=== PATIENT | female | born 1955 | race Caucasian/White ===

== ENCOUNTER 2022-06-15 13:55 | Emergency (ER) | payer MEDICARE, SELFPAY ==
--- NOTE | ~2022-06-15 | XR_ITS ---
EXAMINATION: XR ankle LT min 3V DATE: 06/15/2022 14:25 INDICATION: Left ankle swelling TECHNIQUE: Anteroposterior, lateral, mortise, and additional oblique view of the ankle were obtained. COMPARISON: None. FINDINGS: The bones are osteopenic which limits the sensitivity for fracture however none is seen. Remi ne alignment is normal. There is mild soft tissue swelling projecting posterior to the distal tibia a nd fibula. Posterior and plantar calcaneal enthesophytes are noted. IMPRESSION: 1. Mild posterior soft tissue swelling of the distal leg without acute osseous abnormality identified . Reviewed, dictated and finalized at location B. IMPRESSION: 1. Mild posterior soft tissue swelling of the distal leg without acute osseous abnormality identified.
--- NOTE | 2022-06-15 14:03 | ED.LOWEXIN ---
HPI - Extremity Injury (Lower) General Chief Complaint: Extremity Problem,Nontraumatic Stated Complaint: left ankle injury Time Seen by Provider: 06/15/22 14:03 Source: patient, RN notes reviewed and old records reviewed Mode of arrival: ambulatory Limitations: no limitations History of Present Illness HPI Narrative: 66-year-old female presents to the [facility] with complaints of left ankle pain and 2 scabbed over area for the last 3 months. Has a history of peripheral artery disease, poor circulation, smoking. States it swells once in a while. Has not called primary care provider for an evaluation. Family member that is at bedside thinks that she rolled her ankle 3 months ago and is afraid it might be broken because of the swelling and discoloration that has been like that for 3 months Related Data Home Medications Medication Instructions Recorded Confirmed aspirin 325 mg tablet 325 mg PO DAILY 03/21/22 06/15/22 multivitamin (Daily Multi-Vitamin 1 tablet PO DAILY 03/21/22 06/15/22 tablet) Allergies Allergy/AdvReac Type Severity Reaction Status Date / Time No Known Allergies Allergy Verified 06/15/22 14:10 Review of Systems Review of Systems: All systems reviewed & are unremarkable except as noted in HPI and below Constitutional: Constitutional: Reports no additional constitutional complaints, Denies chills and Denies fever(s) Eyes: Eyes: Reports no additional eye complaints ENT: Reports system reviewed and no additional complaints, except as documented Cardiovascular: Cardiovascular: Reports no additional cardiovascular complaints Respiratory: Respiratory: Reports no additional respiratory complaints Gastrointestinal: Gastrointestinal: Reports no additional gastrointestinal complaints Musculoskeletal: Musculoskeletal: Reports as per HPI Integumentary/Breasts: Skin/Breast: Reports as per HPI Neurologic: Reports system reviewed and no additional complaints, except as documented Psychiatric: Psychiatric: Reports no additional psychiatric complaints Allergic/Immunologic: Allergic/Immunologic: Reports no additional allergic/immunologic complaints PMFSH Past Medical History Medical History Essential (primary) hypertension Mixed hyperlipidemia Neurofibromatosis PVD (peripheral vascular disease) Seizure disorder Shingles (~02/26/20) Tobacco use Family History Family History Other Diabetes mellitus Family history of coronary artery disease Family history of elevated blood lipids Hypertension Malignant neoplasm of prostate Social History Social History Smoking packs per day: 0.5 Smoking cigarettes per day: 10.0 Smoking status: Current every day smoker Tobacco type: cigarettes Alcohol intake: never Comments At the time of my signature, I reviewed and agree with the nursing past medical, surgical, social, and family history. There is no relevant family history pertinent to the patient complaint. Exam Const: General: no acute distress, alert and ill appearing chronically; not acutely Nutritional Appearance: well nourished Orientation/consciousness: patient oriented x3 Limitations: no limitations HENMT: Head: normal to inspection Ears: external ears normal Eyes: General: appearance normal, both eyes and all related structures Pupils: Equal, round and reactive pupils present Neck: Neck: normal visual inspection, no lymphadenopathy and no meningeal signs Chest: Chest palpation & inspection: normal inspection of the chest Resp: Effort & Inspection: normal respiratory effort and no use of accessory muscles Auscultation: clear to auscultation bilaterally, no crackles, no rales, no rhonchi and no wheezes Cardio: Rate: regular rate Rhythm: regular rhythm GI: GI Palp: Yes Soft to palpation and No Tenderness to palpation present (GI) Back/Spine/Pelvis: Cervical S
[2022-06-15 14:04] VITALS: BP 160/52; PULSE 84; RESP 16; TEMP 37.4; O2SAT 100
== END 2022-06-15 15:18 | disposition home or self-care (01) ==
PROVIDERS: Emergency Provider Nurse Practitioner; PCP Nurse Practitioner Family
DX: M25.572 Pain in left ankle and joints of left foot (principal); M85.872 Other specified disorders of bone density and structure, left ankle and foot; I73.9 Peripheral vascular disease, unspecified; F17.210 Nicotine dependence, cigarettes, uncomplicated; I10 Essential (primary) hypertension; E78.2 Mixed hyperlipidemia; Z79.82 Long term (current) use of aspirin; Q85.00 Neurofibromatosis, unspecified
CPT/HCPCS: 73610; 99213; G0463

== ENCOUNTER 2022-11-30 12:44 | Outpatient (CLI) | payer MEDICARE, SELFPAY ==
[2022-11-30 19:08] LABS: Alanine Aminotransferase 17 U/L (6-35); Albumin Level 3.6 g/dL (3.5-5.1); Alkaline Phosphatase 108 U/L (38-126); Anion Gap 3 mmol/L (8-16); Aspartate Amino Transferase 34 U/L (14-36); Bilirubin,Total 0.5 mg/dL (0.2-1.3); Blood Urea Nitrogen 32 mg/dL (7-17); Calcium 8.3 mg/dL (8.4-10.2); Carbon Dioxide 30 mmol/L (22-30); Chloride 101 mmol/L (98-107); Estimated Glomerular Filt Rate > 60; Glucose 89 mg/dL (65-110); Potassium 4.5 mmol/L (3.4-5.0); Sodium 134 mmol/L (137-145)
[2022-11-30 20:04] LABS: Basophils Percent Auto 0.6 % (0.2-1.2); Eosinophils Absolute Auto 0.3 K/mm3 (0-0.3); Eosinophils Percent Auto 3.6 % (0-4.4); Hemoglobin 11.5 g/dL (12.0-15.0); Immature Granulocyte Absolute 0.03 K/mm3 (0.00-0.031); Immature Granulocyte Percent A 0.4 % (0-0.5); Lymphocytes Absolute Auto 1.52 K/mm3 (0.9-3.2); Lymphocytes Percent Auto 21.9 % (18.3-44.2); Mean Corpuscular HGB Conc 31.1 g/dl (32-36); Mean Corpuscular Volume 96.6 fl (80-100); Monocytes Absolute Auto 0.8 K/mm3 (0.1-0.6); Neutrophils Absolute Auto 4.3 K/mm3 (1.3-6.7); Neutrophils Percent Auto 62.5 % (45.5-73.1); Platelet Count Result 292 k/mm3 (150-375); Red Blood Count 3.83 M/mm3 (4.2-5.4); White Blood Count 6.9 K/mm3 (4.5-10.0)
== END 2022-11-30 12:45 | disposition home or self-care (01) ==
LOC: ANHGOSHLAB 12:46
PROVIDERS: PCP Family Medicine; Visit Provider Nurse Practitioner Family
DX: I77.1 Stricture of artery (principal); L98.499 Non-pressure chronic ulcer of skin of other sites with unspecified severity
CPT/HCPCS: 36415; 80053; 85025

== ENCOUNTER 2022-12-27 12:19 | Outpatient (RCR) | payer MEDICARE, SELFPAY ==
--- NOTE | 2022-12-27 13:14 | PTOPEVAL1 ---
Assessment and note entered by José Robert, PT Evaluation Information Diagnosis weakness Subjective Information Patient and sister are in a slight disagreement about how weak the patient it. Patient reports that she is able to walk with or without walker, go up and down a step and get out of bed, chairs, and on/off toilet without issue. When sister reports that she has trouble patient gets up and does the sit ot stand or steps with therapist to state she is doing okay. Reported Pain Level Pain Score Mild Pain: Edgar Roberts Additional Pain Score Comments in the L foot from the wound incision Assessment PT Clinical Summary Urszula is a 67 year old female coming into the clinic with a diagnosis of post-procedural weakness. Patient reports that she does not feel like she is weak and moves around well with out without the walker. Sister disagrees so physical therapist has patient do activities the sister thinks the patient has trouble with. In the clinic patient was independent with all functional mobility observed. Gave patient an HEP of lower extremity exercises to keep strength up and discharged per her request also informing her that she can come back after incision is healed if she want to improve her gait pattern. Walker was readjusted to better serve her height. Plan of Care PT Services Indicated No Treatment Frequency and Discharge from skilled physical therapy. Duration These treatments will address the objective and functional deficits as defined above. The patient will be advanced safely and appropriately in order for the patient to progress towards his/her prior level of function. Additional exercises will be introduced and as well as a comprehensive home exercise program upon discharge, if needed, ?to ensure carryover of functional gains achieved in the clinic. This treatment plan has been reviewed and agreement upon by the patient.
== END 2023-03-12 08:48 | disposition home or self-care (01) ==
LOC: ANHPT 12:19
PROVIDERS: PCP Family Medicine; Visit Provider Nurse Practitioner Family
DX: R53.1 Weakness (principal); Z98.890 Other specified postprocedural states
CPT/HCPCS: 97110; 97161

== ENCOUNTER 2023-09-05 15:42 | Outpatient (CLI) | payer MEDICARE, SELFPAY ==
[2023-09-05 19:17] LABS: Basophils Percent Auto 0.5 % (0.2-1.2); Eosinophils Absolute Auto 0.1 K/mm3 (0-0.3); Eosinophils Percent Auto 1.3 % (0-4.4); Hemoglobin 12.2 g/dL (12.0-15.0); Immature Granulocyte Absolute 0.01 K/mm3 (0.00-0.031); Immature Granulocyte Percent A 0.2 % (0-0.5); Lymphocytes Absolute Auto 1.66 K/mm3 (0.9-3.2); Mean Corpuscular HGB Conc 30.5 g/dl (32-36); Mean Corpuscular Hemoglobin 28.7 pg (26-34); Mean Corpuscular Volume 94.1 fl (80-100); Mean Platelet Volume 9.8 fl (7.4-10.4); Monocytes Absolute Auto 0.5 K/mm3 (0.1-0.6); Monocytes Percent Auto 7.7 % (2.6-8.5); Neutrophils Absolute Auto 4.1 K/mm3 (1.3-6.7); Neutrophils Percent Auto 64.3 % (45.5-73.1); Platelet Count Result 242 k/mm3 (150-375); Red Blood Count 4.25 M/mm3 (4.2-5.4); Red Cell Distribution Width 14.6 % (11.5-14.5); White Blood Count 6.4 K/mm3 (4.5-10.0)
[2023-09-05 20:11] LABS: Thyroid Stimulating Hormone Reflex 0.854 uIU/mL (0.465-4.68)
[2023-09-05 20:33] LABS: Cholesterol 179 mg/dL (0-200); HDL Direct 59 mg/dL; Triglycerides 135 mg/dL (<150)
[2023-09-05 20:37] LABS: Alanine Aminotransferase 17 U/L (6-35); Albumin Level 4.2 g/dL (3.5-5.1); Alkaline Phosphatase 93 U/L (38-126); Anion Gap 8 mmol/L (8-16); Aspartate Amino Transferase 31 U/L (14-36); Bilirubin,Total 0.5 mg/dL (0.2-1.3); Blood Urea Nitrogen 32 mg/dL (7-17); Calcium 9.3 mg/dL (8.4-10.2); Carbon Dioxide 29 mmol/L (22-30); Chloride 106 mmol/L (98-107); Estimated Glomerular Filt Rate > 60; Glucose 98 mg/dL (65-110); Potassium 5.1 mmol/L (3.4-5.0); Sodium 143 mmol/L (137-145)
[2023-09-05 20:44] LABS: LDL Cholesterol Direct 81 mg/dL
[2023-09-05 21:09] LABS: Thyroid Stimulating Hormone 0.887 uIU/mL (0.465-4.680)
[2023-09-05 21:53] LABS: Hemoglobin A1C 5.3 % (<5.7)
== END 2023-09-05 15:43 | disposition home or self-care (01) ==
LOC: ANHGOSHLAB 15:44
PROVIDERS: Nurse Practitioner Family; PCP Family Medicine; Visit Provider Nurse Practitioner Family
DX: E78.2 Mixed hyperlipidemia (principal); I10 Essential (primary) hypertension; R73.03 Prediabetes; E03.9 Hypothyroidism, unspecified
CPT/HCPCS: 36415; 80053; 80061; 83036; 84443; 85025

== ENCOUNTER 2023-09-21 15:46 | Outpatient (CLI) | payer MEDICARE, SELFPAY ==
[2023-09-21 19:43] LABS: Potassium 4.8 mmol/L (3.4-5.0)
== END 2023-09-21 15:47 | disposition home or self-care (01) ==
LOC: ANHGOSHLAB 15:48
PROVIDERS: PCP Family Medicine; Visit Provider Nurse Practitioner Family
DX: E87.5 Hyperkalemia (principal)
CPT/HCPCS: 36415; 84132

== ENCOUNTER 2024-05-05 07:20 | Emergency (ER) | payer MEDICARE, SELFPAY ==
--- NOTE | ~2024-05-05 | CT_ITS ---
Noncontrast CT scan of the cervical spine Technique: Multiple contiguous axial [address] images of the cervical spine were obtained and rec onstructed in 2D sagittal and coronal planes on the acquisition scanner. Dose reduction technique was used on this scan by utilizing automated exposure control, adjustment of the mA and/or kV according to patient size. The dose-length product (DLP) was 103.65 mGy-cm. Clinical History: Pain Findings: No fractures or dislocations. Unremarkable visualized bony structures. The intervertebral disc spaces are preserved. No prevertebral soft tissue swelling. Probable right apical pulmonary sc arring. Impression: No fracture or subluxation of the cervical spine. Reviewed, dictated and finalized at location . Impression: No fracture or subluxation of the cervical spine.
--- NOTE | ~2024-05-05 | CT_ITS ---
Non-contrast Head CT History: Head injury Technique: Axial non-contrast imaging of the brain was performed. Dose reduction technique was used on this scan by utilizing automated exposure control and iterative reconstruction technique. The dose -length product (DLP) was 681.00 mGy-cm. Findings: There is no evidence of intracranial hemorrhage, mass lesion, or acute infarct. Brain par enchyma appears normal. The ventricles and subarachnoid spaces are normal in size. The calvarium ap pears normal. The visualized paranasal sinuses and mastoid air cells are clear. Impression: No significant abnormality seen. Reviewed, dictated and finalized at location . Impression: No significant abnormality seen.
--- NOTE | ~2024-05-05 | XR_ITS ---
Clinical Indication: Seizure, weakness PA and lateral views of the chest: Comparison: 02/23/2004 Findings: There is probable biapical scarring and COPD pattern. No acute pulmonary abnormality eviden t. Cardiomediastinal silhouette is within normal limits. Bones and soft tissues are unremarkable. Impression: Probable COPD and biapical scarring. No acute abnormality evident. Reviewed, dictated and finalized at location . Impression: Probable COPD and biapical scarring. No acute abnormality evident.
--- NOTE | ~2024-05-05 | XR_ITS ---
XR shoulder LT min 2V Ordering provider: Demian Lerner MD History: . pain, fall, ABRASION TO POSTERIOR SHOULDER . Comparison: None. FINDINGS: BONES: No acute fracture or dislocation. Elevation of the humeral head is noted. Spurring of the acro mion is seen. Degenerative changes of the site of insertion of the supraspinatus is noted. JOINT SPACES: The acromioclavicular joint is normal. The glenohumeral joint is normal. SOFT TISSUES: Normal. IMPRESSION: No acute osseous abnormality left shoulder. Reviewed, dictated and finalized at location A.
[2024-05-05 07:21] VITALS: BP 180/78; PULSE 88; RESP 22; TEMP 36.6; O2SAT 98
--- NOTE | 2024-05-05 07:35 | ED.FALL ---
HPI - Fall General Chief Complaint: Fall Stated Complaint: fall? Time Seen by Provider: 05/05/24 07:26 History of Present Illness HPI Narrative: Patient is a 68-year-old female who presents ER after having seizure. Patient with known seizure disorder. Compliant with her Keppra. Last seizure was 3 years ago. Patient struck her head when falling and having her seizure. She has some abrasions to the left temporal region. She has bruising above her eyebrow on left side. She also has a small bruise to the upper eyelid. Patient under increased stress as a family member was starting dialysis today and she woke up early to help get him ready. Related Data Home Medications Medication Instructions Recorded Confirmed aspirin 325 mg tablet 325 mg PO DAILY 03/21/22 04/21/24 multivitamin (Daily Multi-Vitamin 1 tablet PO DAILY 03/21/22 04/21/24 tablet) Allergies Allergy/AdvReac Type Severity Reaction Status Date / Time No Known Allergies Allergy Verified 04/21/24 12:49 Review of Systems Review of Systems: All systems reviewed & are unremarkable except as noted in HPI and below Constitutional: Constitutional: Reports no additional constitutional complaints ENT: Reports system reviewed and no additional complaints, except as documented Cardiovascular: Cardiovascular: Reports no additional cardiovascular complaints Respiratory: Respiratory: Reports no additional respiratory complaints Neurologic: Denies headache(s), Denies focal weakness and Denies numbness Comments: seizure PMFSH Past Medical History Medical History Arterial insufficiency with ischemic ulcer Blood clot in vein Essential (primary) hypertension Former smoker Quit smoking 10/2022 Hyperkalemia Mixed hyperlipidemia Neurofibromatosis PVD (peripheral vascular disease) Seizure disorder Shingles (~02/26/20) Surgical History Surgical History Hx of endarterectomy (~10/2022) S/P femoral-tibial bypass (~10/2022) Family History Family History Other Diabetes mellitus Family history of coronary artery disease Family history of elevated blood lipids Hypertension Malignant neoplasm of prostate Social History Social History Social History: Caffeine-pepsi Smoking packs per day: 0.75 Smoking cigarettes per day: 15.0 Smoking status: Current every day smoker Tobacco type: cigarettes Alcohol intake: never Substance use: never Substance use type: does not use Do You Feel Safe in your Home?: Yes Lack of Transportation: No Lack of Food: Never True Current Housing: I Have Housing Concerned About Future Housing: No Difficulty Paying Gas/Electric Bills: No Difficulty Paying for Meds: No Currently Unemployed: No Education: High School Diploma/GED Difficulty w/ Childcare or Family Care: No Living arrangements: with family Occupation/Education: retired Gender identity (if verbalized by the patient): Female Agree to blood products: Yes Exam Narrative: GENERAL: Well-appearing, well-nourished, and in no acute distress. HEAD: Normocephalic, bruising left forehead and left lateral eyebrow. EYES: PERRL and EOMI. Bruising right upper eyelid ENT: Mucous membranes moist. no tongue injury. NECK: Supple. C-spine immobilized. CHEST: Clear to auscultation. No respiratory distress. HEART: Regular rate and rhythm. Normal peripheral pulses. ABDOMEN: Soft, nontender, nondistended. EXTREMITIES: Normal range of motion. No edema. SKIN: Warm, dry, no rash. NEURO: No focal deficits. Alert and oriented x3. PSYCH: Normal mood and affect. Course Course Emergency Course: Patient resting comfortably. Seizure-free since Keppra administration after 1 time seizure in the ER. Appropriate for discharge ho
[2024-05-05 08:20] LABS: Alanine Aminotransferase 16 U/L (6-35); Albumin Level 4.4 g/dL (3.5-5.1); Alkaline Phosphatase 79 U/L (38-126); Anion Gap 10 mmol/L (4-12); Aspartate Amino Transferase 24 U/L (14-36); Bilirubin,Total 0.7 mg/dL (0.2-1.3); Blood Urea Nitrogen 23 mg/dL (7-17); Calcium 9.2 mg/dL (8.4-10.2); Carbon Dioxide 28 mmol/L (22-30); Chloride 101 mmol/L (98-107); Estimated CRCL calculation 49 ml/min; Estimated Glomerular Filt Rate > 60; Glucose 113 mg/dL (65-110); Potassium 4.5 mmol/L (3.4-5.0); Sodium 139 mmol/L (137-145)
[2024-05-05 08:24] LABS: Ethanol < 10 mg/dL (<10)
[2024-05-05 08:44] LABS: Basophils Percent Auto 0.4 % (0.2-1.2); Eosinophils Absolute Auto 0.1 K/mm3 (0-0.3); Eosinophils Percent Auto 1.1 % (0-4.4); Hematocrit 46.3 % (37.0-47.0); Hemoglobin 14.2 g/dL (12.0-15.0); Immature Granulocyte Absolute 0.02 K/mm3 (0.00-0.031); Immature Granulocyte Percent A 0.2 % (0-0.5); Lymphocytes Absolute Auto 1.06 K/mm3 (0.9-3.2); Lymphocytes Percent Auto 13.1 % (18.3-44.2); Mean Corpuscular HGB Conc 30.7 g/dl (32-36); Mean Corpuscular Hemoglobin 30.2 pg (26-34); Mean Corpuscular Volume 98.5 fl (80-100); Mean Platelet Volume 9.6 fl (7.4-10.4); Monocytes Absolute Auto 0.5 K/mm3 (0.1-0.6); Monocytes Percent Auto 6.4 % (2.6-8.5); Neutrophils Absolute Auto 6.4 K/mm3 (1.3-6.7); Neutrophils Percent Auto 78.8 % (45.5-73.1); Platelet Count Result 160 k/mm3 (150-375); Red Cell Distribution Width 14.6 % (11.5-14.5); White Blood Count 8.1 K/mm3 (4.5-10.0)
[2024-05-05] MEDS: levETIRAcetam 1000MG/NACL100ML 1,000 MG/100 ML BAG 400 MG IVPB (09:06)
[2024-05-05 09:23] VITALS: BP 167/73; PULSE 86; RESP 16; O2SAT 98
--- NOTE | 2024-05-05 09:23 | PC.NURSE ---
Pt had witnessed seizure by this RN and EDP. Seizure precautions initiated.
[2024-05-05 10:46] LABS: Appearance Urine Clear (Clear); Bacteria Urine 4+ /hpf; Bilirubin Urine Negative (Negative); Blood Urine Negative (Negative); Color Urine Yellow (Yellow); Glucose Urine UA Negative (Negative); Ketones Urine Negative (Negative); Leukocyte Esterase Ur 1+ LEU/UL (Negative); Nitrate Urine Positive (Negative); Non Pathogenic Casts 0-2; Protein Urine Trace mg/dL (Negative); Specific Grav Ur 1.013 (1.001-1.035); Squamous Epithelial Cell Urine None Seen /hpf (Few); WBC Urine 21-50 /hpf (0-3)
[2024-05-05 10:49] LABS: Add Urine Microscopic? YES
[2024-05-05] MEDS: CEPHALEXIN 500 MG CAPSULE PO (11:23)
[2024-05-05 11:46] VITALS: BP 179/78; PULSE 78; RESP 16; O2SAT 100
[2024-05-05 13:32] VITALS: BP 168/71; PULSE 81; RESP 16; O2SAT 99
[2024-05-05 15:59] VITALS: BP 155/54; PULSE 88; RESP 16; O2SAT 97
== END 2024-05-05 16:05 | disposition home or self-care (01) ==
PROVIDERS: Emergency Provider Emergency Medicine; PCP Family Medicine
DX: G40.909 Epilepsy, unspecified, not intractable, without status epilepticus (principal); S00.83XA Contusion of other part of head, initial encounter; S00.11XA Contusion of right eyelid and periocular area, initial encounter; S00.12XA Contusion of left eyelid and periocular area, initial encounter; S00.81XA Abrasion of other part of head, initial encounter; N39.0 Urinary tract infection, site not specified; I10 Essential (primary) hypertension; I77.1 Stricture of artery; I73.9 Peripheral vascular disease, unspecified; E78.2 Mixed hyperlipidemia; Z87.891 Personal history of nicotine dependence; Z79.82 Long term (current) use of aspirin; Z79.899 Other long term (current) drug therapy; W18.39XA Other fall on same level, initial encounter
CPT/HCPCS: 36415; 70450; 71046; 72125; 73030; 80053; 80307; 81001; 85025; 87077; 87086; 87186; 96374; 99284; A9270; J1953; J2060

== ENCOUNTER 2025-05-18 14:43 | Outpatient (CLI) | payer MEDICARE, SELFPAY ==
--- OUTSIDE RECORDS SUMMARY | 2025-05-18 14:46 | XMS_ITS | Encounter Summary ---
Author Organization [facility] Address [facility] [place] [address] Care Team Providers [facility] Former Name Role Phone Renetta Cheryl SOCIAL WORKER DELINQUENCY PREVENTION Primary Care Provider [phone] Reason for Referral * Surgical (Routine) - Closed Specialty Diagnoses / Procedures Referred By Contac t Referred To Contact Diagnoses PVD (peripheral vascular disease) Procedures Case request operating room: [facility] Ulisses Stanley MD [facility]. [id number] [place] [address] Phone: tel: fax: Referral ID Status Reason Start Date Expiration Date Visits Re quested Visits Authorized [id number] Closed 09/13/2022 09/13/2023 1 1 CASTER HELPER Encounter Details Date Type Department Care Team (Late st Contact Info) Description 09/13/2022 Prep for Procedure [facility] [address] [place] [address] Ulisses Stanley MD [facility]. [facility] [address] [place] [address] Social History Tobacco Use Types Packs/Day Years Used Date Smoking Tobacco: Every Day Cigarettes Alcohol Use Standard Drinks/Week Comments Never 0 (1 standard drink = 0.6 oz pur e alcohol) Comments Unknown Sex and Gender Information Value Date Recorded Sex Assigned at Not on file Legal Sex Female 2:00 PM CDT Gender Identity Not on file Sexual Orientation Not on file COVID-19 Exposure Response Date Recorded In the last 10 days, have yo u been in contact with someone who was confirmed or suspected to have Coronavirus/COVID-19? 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 documented as of this encounter Plan of Treatment Scheduled Orders Name Type Priority Associated Diagnoses Orde r Schedule Case request operating room: [facility] Case Request Routine PVD (peripheral vascular disease) Once for 1 Occurrences starting 09/13/2022 until 09/13/2022 documented as of this encounter Visit Diagnoses Diagnosis Essential hypertension- Primary Unspecified essential hypertension PVD (peripheral vascular disease) Peripheral vascular disease, unspecified documented in this encounter Additional Health Concerns Infection Onset Date Last Indicated Resolved Time MRSA 01/09/2023 01/09/2023 documented as of this encounter Care Teams Cone Former Relationship Specialty Start Date End Date Janny Jackson FNP [address] [place] [address] [place] [address] PCP - General Nurse Practitioner Family 06/30/22 documented as of this encounter
--- OUTSIDE RECORDS SUMMARY | 2025-05-18 14:46 | XMS_ITS | Clinical Summary ---
Author Organization [facility] Address [address] [place] [address] Care Team Providers Care Night Shift Name Role Phone Janny Jackson Primary Care Provider [phone] Allergies No known active allergies Medications levETIRAcetam (KEPPRA) 1000 MG tablet Take 1 tablet (1,000 mg total) by mouth every 12 (twelve) hours. 2 Active aspirin 325 MG tablet Take 1 tablet (325 mg total) by mouth daily. Active Multiple Vitamin (MULTI VITAMIN DAILY OR) Take 1 tablet by mouth daily. Active SANTYL ointment Apply topically daily. Apply to cleansed affected area. 2 Active carvedilol (COREG) 6.25 MG tablet Take 1 tablet (6.25 mg total) by mouth 2 (two) times daily. 2 Active atorvastatin (LIPITOR) 80 MG tablet Take 0.5 tablets (40 mg total) by mouth daily. 90 tablet 3 Active Additional Information Patient taking differently: 80 mgOral Daily, Reported on 01/09/2023 acetaminophen (TYLENOL) 325 MG tablet Take 1 tablet (325 mg total) by mouth every 4 (four) hours as needed for Pain. 90 tablet 3 Active lisinopril (PRINIVIL) 2.5 MG tablet Take 1 tablet (2.5 mg total) by mouth daily. 30 tablet 3 Active melatonin 3 MG tablet Take 1 tablet (3 mg total) by mouth nightly as needed. Active ibuprofen (MOTRIN) 400 MG tablet Take 1 tablet (400 mg total) by mouth every 6 (six) hours as needed for Pain. Active Active Problems Problem Noted Date Diagnosed Date Essential (primary) hypertension 11/10/2022 Mixed hyperlipidemia 11/10/2022 Neurofibromatosis ([facility]) 11/10/2022 PAD (peripheral artery disease) 11/10/2022 Seizure disorder ([facility]) 11/10/2022 Stroke ([facility]) 11/10/2022 Tobacco use 11/10/2022 Ovarian cancer ([facility]) 11/10/2022 Left foot infection 10/24/2022 Wound cellulitis 09/19/2022 Chronic ulcer of left leg, l imited to breakdown of skin ([facility]) 08/16/2022 Cigarette smoker 07/04/2022 Peripheral vascular disease 07/04/2022 Ulcer of left ankle ([facility]) 07/04/2022 Chronic ankle pain 07/04/2022 Acute pain due to trauma 10/17/2018 Takotsubo cardiomyopathy 10/17/2018 Elevated troponin I level 10/16/2018 SAH (subarachnoid hemorrhage) ([facility]) 10/16/2018 Family History Medical History Relation Comments No Known Problems Mother Relation Status Comments Mother Social History Tobacco Use Types Packs/Day Years Used Date Smoking Tobacco: Some Days Cigarettes Last attempted to quit: 09/05/2022 Tobacco Cessation:Ready to Q uit: Not Asked; Counseling Given: Not Answered Alcohol Use Standard Drinks/Week Comments Never 0 (1 standard drink = 0.6 oz pur e alcohol) Humiliation, Afraid, Rape, and Kick questionnair e Answer Date Recorded Within the last year, have y ou been afraid of your partner or ex-partner? No 10/25/2022 Within the last year, have y ou been humiliated or emotionally abused in other ways by your partner or ex-partner? No Within the last year, have y ou been kicked, hit, slapped, or otherwise physically hurt by your partner or ex-partner? No 10/25/2022 Within the last year, have y ou been raped or forced to have any kind of sexual activity by your partner or ex-partner? No 10/25/2022 Overall Financial Resource Strain (CARDIA) Answe r Date Recorded How hard is it for you to pa y for the very basics like food, housing, medical care, and heating? Not very hard 10/25/2022 Hunger Vital Sign Answer Date Recorded Within the past 12 months, y ou worried that your food would run out before you got the money to buy more. Never true 10/25/19 23 Within the past 12 months, t he food you bought just didn't last and you didn't have money to get more. Never true 10/25/2022 PRAPARE - Transportation Answer Date Re corded In the past 12 months, has l ack of transportation kept you from medical appointments or from getting medications? No 01/2023 In the past 12 months, has l ack of transportation kept you from meetings, work, or from getting things needed for daily living? No 10/25/2022 Housing Stability Vital Sign Answer Kang e Recorded In the last 12 months, was t here a time when you were not able to pay the mortgage or rent on time? No 10/25/2022 In the last 12 months, how many places have you lived? 2 10/25/2022 In the last 12 months, was t here a time when you did not have a steady place to sleep or slept in a fpc (including now)? No 10/25/2022 Comments No Sex and Gender Information Value Date Recorded Sex Assigned at Not on file Legal Sex Female 2:00 PM CDT Gender Identity Not on file Sexual Orientation Not on file Last Filed Vital Signs Vital Sign Reading Time Taken Comments Blood Pressure 122/68 02/21/2023 11:23 AM CDT Pulse 98 02/21/2023 11:23 AM CDT Temperature 36.7 C (98 F) 01/09/2023 7:08 PM CDT Respiratory Rate 18 01/09/2023 7:08 PM CDT Oxygen Saturation 99% 01/09/2023 9:00 PM CDT Inhaled Oxygen Concentration - - Weight 45.4 kg (100 lb) 02/21/2023 11:23 AM CDT Height 160 cm (5' 3) 02/21/2023 11:23 AM CDT Body Mass Index 17.71 02/21/2023 11:23 AM CDT Plan of Treatment Health Maintenance Due Date Last Done Comments ASCVD LDL 1955 ASCVD Statin 1955 Colorectal Cancer Screening Colonoscopy (10 Years) 1953 DTaP, Tdap and Td Vaccines ( 1 - Tdap) 1972 Pneumococcal Vaccine: 50+ Ye ars (1 of 2 - PCV) 1972 Mammogram Screening 1993 Zoster Vaccines (1 of 2) 2003 Annual Medicare Wellness Visit 2018 Dexa Scan (General) 2018 COVID-19 Vaccine (2023-2 5 season) 2024 RSV Immunization or 60+ Years (1 - 1-dose 75+ series) 2028 Hepatitis C Completed 11/01/2022 Meningococcal B Vaccine Aged Out No l onger eligible based on patient's age to complete this topic Meningococcal Vaccine Aged Out No na ankit eligible based on patient's age to complete this topic RSV Immunizations Under 20 Months Aged Out No longer eligible based on patient's age to complete this topic Goals Goal Patient Goal Type Associated Problems Recent Progress Patient-Stated? Author Family - family caregiver with be involved in care transitions and discharge planning Lifestyle No Payton Hunter, PARKS AND RECREATION MANAGERsteel pickler Devices Implanted Type Area Retail Client Manager Device Identifier Shelf Expiration Date Model / Serial / Lot Patch Shyann. Vasc. Vascu-Guard 0.8cm X 8cm - [id number] Implanted:Qty: 1 on 10/27/2022 by Ulisses Stanley MD at [facility] Mesh Left: Arterial [employer] 05/31/2027 [id number] / / [id number] Procedures Procedure Name Priority Date/Time Associated Diagnosis Comments HC EIA QL HEPATITIS ABC B AG Routine 11/01/2022 6:50 AM ANIMAL ATTENDANTS AND TRAINERS from Last 3 Months or Most Recently Relevant to Health Maintenance Results * HEPATITIS A,B,& C (11/01/2022 6:50 AM ANIMAL ATTENDANTS AND TRAINERS) HEPATITIS B SURFACE AG NON-REACTI VE NON-REACTI VE 11/01/2022 11:09 AM ANIMAL ATTENDANTS AND TRAINERS [facility] HEP B CORE TOTAL AB NON-REACTI VE NON-REACTI VE 11/01/2022 11:10 AM ANIMAL ATTENDANTS AND TRAINERS [facility] HEP B SURFACE AB NON-REACTI VE 11/01/2022 11:10 AM ANIMAL ATTENDANTS AND TRAINERS [facility] HAV IGM NON-REACTI VE NON-REACTI VE 11/01/2022 11:10 AM ANIMAL ATTENDANTS AND TRAINERS [facility] HEPATITIS C AB NON-REACTI VE NON-REACTI VE 11/01/2022 11:10 AM ANIMAL ATTENDANTS AND TRAINERS [facility] 11/01/2022 6:50 AM ANIMAL ATTENDANTS AND TRAINERS Rom Lopez MD LABORATORY Final Result [facility] [address] [place] [address], from Last 3 Months or Most Recently Relevant to Health Maintenance Additional Health Concerns Infection Onset Date Last Indicated MRSA 01/09/2023 01/09/[address]23 [place] [id number] [facility] [employer] [place] [address] Advance Directives * Full Code (Latest Code Status on File) Date Activated Date Inactivated Comments 10/24/2022 11:32 PM 11/10/2022 4:30 PM * Full Code Date Activated Date Inactivated Comments 09/19/2022 2:38 AM 09/19/2022 7:30 PM Care Teams Night Shift Relationship Specialty Start Date End Date Janny Jackson FNP [address] [place] [address] [address] PCP - General Nurse Practitioner Family 06/30/22
--- OUTSIDE RECORDS SUMMARY | 2025-05-18 14:46 | XMS_ITS | Encounter Summary ---
Author Organization [facility] Address [facility] [place] [address] Care Team Providers Care Dredge Hand Name Role Phone Janny Jackson PRINTING TABLE HAND Primary Care Provider [phone] Encounter Details Date Type Department Care Team (Late st Contact Info) Description 10/25/2022 Prep for Procedure [place] [facility], [facility] [address] [id number] Ulisses Stanley MD Three [facility]. [facility] [address] [place] [address] Social History Tobacco Use Types Packs/Day Years Used Date Smoking Tobacco: Some Days Cigarettes Last attempted to quit: 09/05/2022 Alcohol Use Standard Drinks/Week Comments Never 0 [...] place to sleep or slept in a long term (including now)? No 10/25/2022 Comments No Sex [...] suspected to have Coronavirus/COVID-19? No / Unsure 10/24/2022 6:38 PM MEAT AND SEAFOOD CLERK documented as of this encounter Functional Status * Question Answer Date of Assessment Author Status Do you have serious difficulty walking or climbing stairs? Yes 10/25/2022 1:55 PM MEAT AND SEAFOOD CLERK Hazel Lugo RN Active * Question Answer Date of Assessment Author Status Do you have difficulty dressing or bathing? Yes 10/25/2022 1:55 PM Josephine Priest RN Active Because of a physical, mental, or emotional condition, do you have difficulty doing errands alone such as visiting a doctor's office or shopping? Yes 10/25/2022 1:55 PM Hazel Priest RN Active * RETIRED Are you deaf or do you have serious difficulty hearing Answer Date of Assessment Author Status No 10/25/2022 1:55 PM MEAT AND SEAFOOD CLERK Activ e * RETIRED Are you blind or do you have serious difficulty seeing, even when wearing glasses? Answer Date of Assessment Author Status No 10/25/2022 1:55 PM MEAT AND SEAFOOD CLERK Activ e * Do you have serious difficulty walking or climbing stairs? Answer Date of Assessment Author Status Yes 10/25/2022 1:55 PM Domitila Priest RN Active * Do you have difficulty dressing or bathing? Answer Date of Assessment Author Status Yes 10/25/2022 1:55 PM Domitila Priest RN Active * Because of a physical, mental, or emotional condition, do you have difficulty doing errands alone such as visiting a doctor's office or shopping? Answer Date of Assessment Author Status Yes 10/25/2022 1:55 PM Domitila Priset RN Active * Calculated C-SSRS Risk Score (Lifetime/Recent) Answer Date of Assessment Author Status No Risk Indicated 10/27/2022 10:42 AM Yevgeniy Chakraborty RN Active * [place] Suicide Severity Rating Scale (Screener/Recent Self-Report) Question Answer Date of Assessment Author Status 1. Wish to be (Past 1 Month) No 10/27/2022 10:42 AM Cm Chakraborty, RN Morales tive 2. Non-Specific Active Suicidal Thoughts (Past 1 Month) No 10/27/2022 10:42 AM Cm Chakraborty, RN Ac tive 6. Suicidal Behavior (Lifetime) No 10/27/2022 10:42 AM Cm Chakraborty RN Morales jain documented as of this encounter Mental Status * Question Answer Entry Date Author Status Because of a physical, mental, or emotional condition, do you have serious difficulty concentrating, remembering, or making decisions? Yes 10/25/2022 1:55 PM Domitila Priest RN Active * Because of a physical, mental, or emotional condition, do you have serious difficulty concentrating, remembering, or making decisions? Answer Entry Date Author Status Yes 10/25/2022 1:55 PM MEAT AND SEAFOOD CLERK Domitila Lugo, RN Active documented in this encounter Plan of Treatment Not on file documented as of this encounter Goals Goal Patient Goal Type Associated Problems Recent Progress Patient-Stated? Author Family - family caregiver with be involved in care transitions and discharge planning Lifestyle No Payton Hunter, SENIOR INTERNAL AUDITOR documented as of this encounter Visit Diagnoses Not on filedocumented in this encounter Additional Health Concerns Infection Onset Date Last Indicated Resolved Time MRSA 01/09/2023 01/09/2023 documented as of this encounter Care Teams Dredge Hand Relationship Specialty Start Date End Date Janny Jackson FNP [facility] [facility] [address] [address] [place] [id number] PCP - General Nurse Practitioner Family 06/30/22 documented as of this encounter
--- OUTSIDE RECORDS SUMMARY | 2025-05-18 14:46 | XMS_ITS | Encounter Summary ---
Author Organization [facility] Address [facility] [place] [address] Care Team Providers Care Boat Pilot Name Role Phone Janny Jackson Primary Care Provider [phone] Encounter Details Date Type Department Care Team (Late st Contact Info) Description 08/21/2022 Prep for Procedure [place] [facility] THREE [facility], [facility] [address] [place], [place] [address] Ulisses Stanley MD Three [facility]. [facility] [address] [place] [address] Social History Tobacco Use Types [...] suspected to have Coronavirus/COVID-19? No / Unsure 08/17/2022 1:52 PM CDT documented as of this encounter Plan of Treatment Not on file documented as of this encounter Visit Diagnoses Not on filedocumented in this encounter Additional Health Concerns Infection Onset Date Last Indicated Resolved Time MRSA 01/09/2023 01/09/2023 documented as of this encounter Care Teams Boat Pilot Relationship Specialty Start Date End Date Janyn Jackson FNP [address] [place], [place] [id number] PCP - General Nurse Practitioner Family 06/30/22 documented as of this encounter
[2025-05-18 18:44] LABS: Hematocrit 42.4 % (37.0-47.0); Hemoglobin 13.4 g/dL (12.0-15.0); Immature Granulocyte Percent A 0.3 % (0-0.5); Lymphocytes Absolute Auto 1.47 K/mm3 (0.9-3.2); Mean Corpuscular HGB Conc 31.6 g/dl (32-36); Mean Corpuscular Hemoglobin 31.4 pg (26-34); Mean Corpuscular Volume 99.3 fl (80-100); Nucleated Red Blood Cells Absolute Auto 0.000 K/mm3 (0.0-0.012); Nucleated Red Blood Cells Perc 0.0 % (0.0-0.2); Platelet Count Result 250 k/mm3 (150-375); Red Blood Count 4.27 M/mm3 (4.2-5.4); White Blood Count 8.0 K/mm3 (4.5-10.0)
[2025-05-18 19:27] LABS: Thyroid Stimulating Hormone Reflex 0.759 uIU/mL (0.465-4.68)
[2025-05-18 19:28] LABS: Alanine Aminotransferase 18 U/L (6-35); Albumin Level 4.1 g/dL (3.5-5.1); Alkaline Phosphatase 91 U/L (38-126); Anion Gap 4 mmol/L (4-12); Aspartate Amino Transferase 65 U/L (14-36); Bilirubin,Total 0.4 mg/dL (0.2-1.3); Blood Urea Nitrogen 33 mg/dL (7-17); Calcium 9.3 mg/dL (8.4-10.2); Carbon Dioxide 31 mmol/L (22-30); Chloride 102 mmol/L (98-107); Cholesterol 161 mg/dL (0-200); Estimated Glomerular Filt Rate 59; Glucose 112 mg/dL (65-110); HDL Direct 58 mg/dL; Potassium 4.8 mmol/L (3.4-5.0); Sodium 137 mmol/L (137-145); Total Protein 7.3 g/dL (6.3-8.2); Triglycerides 120 mg/dL (<150)
[2025-05-18 19:46] LABS: Hemoglobin A1C 5.4 % (<5.7)
[2025-05-18 19:46] LABS: Add Urine Microscopic? YES; Appearance Urine Cloudy (Clear); Glucose Urine UA Negative (Negative); Leukocyte Esterase Ur 3+ LEU/UL (Negative); Nitrate Urine Negative (Negative); Non Pathogenic Casts 0-2; Specific Grav Ur 1.018 (1.001-1.035)
== END 2025-05-18 14:44 | disposition home or self-care (01) ==
LOC: ANHGOSHLAB 14:44
PROVIDERS: PCP Family Medicine; Visit Provider Nurse Practitioner Family
DX: R39.9 Unspecified symptoms and signs involving the genitourinary system (principal); I10 Essential (primary) hypertension; Z00.00 Encounter for general adult medical examination without abnormal findings; E55.9 Vitamin D deficiency, unspecified; R73.9 Hyperglycemia, unspecified; Z86.73 Personal history of transient ischemic attack (TIA), and cerebral infarction without residual deficits; E78.5 Hyperlipidemia, unspecified
CPT/HCPCS: 36415; 80053; 80061; 81001; 82306; 83036; 84443; 85025

== ENCOUNTER 2025-06-24 09:01 | Outpatient (CLI) | payer MEDICARE, SELFPAY ==
[2025-06-24 13:38] LABS: Alanine Aminotransferase 19 U/L (6-35); Albumin Level 3.9 g/dL (3.5-5.1); Alkaline Phosphatase 96 U/L (38-126); Anion Gap 6 mmol/L (4-12); Aspartate Amino Transferase 68 U/L (14-36); Bilirubin,Total 0.5 mg/dL (0.2-1.3); Blood Urea Nitrogen 28 mg/dL (7-17); Calcium 9.0 mg/dL (8.4-10.2); Carbon Dioxide 26 mmol/L (22-30); Chloride 106 mmol/L (98-107); Estimated Glomerular Filt Rate > 60; Glucose 108 mg/dL (65-110); Potassium 4.4 mmol/L (3.4-5.0); Sodium 138 mmol/L (137-145); Total Protein 7.0 g/dL (6.3-8.2)
== END 2025-06-24 09:02 | disposition home or self-care (01) ==
LOC: ANHGOSHLAB 09:02
PROVIDERS: Nurse Practitioner Family; PCP Family Medicine; Visit Provider Nurse Practitioner Family
DX: R74.01 Elevation of levels of liver transaminase levels (principal)
CPT/HCPCS: 36415; 80053

== ENCOUNTER 2025-08-27 09:22 | Outpatient (CLI) | payer MEDICARE, SELFPAY ==
[2025-08-27 13:01] LABS: Alanine Aminotransferase 13 U/L (6-35); Albumin Level 3.7 g/dL (3.5-5.1); Alkaline Phosphatase 86 U/L (38-126); Anion Gap 3 mmol/L (4-12); Aspartate Amino Transferase 54 U/L (14-36); Bilirubin,Total 0.5 mg/dL (0.2-1.3); Blood Urea Nitrogen 28 mg/dL (7-17); Calcium 8.7 mg/dL (8.4-10.2); Carbon Dioxide 31 mmol/L (22-30); Chloride 104 mmol/L (98-107); Estimated Glomerular Filt Rate > 60; Glucose 89 mg/dL (65-110); Potassium 4.8 mmol/L (3.4-5.0); Sodium 138 mmol/L (137-145); Total Protein 6.6 g/dL (6.3-8.2)
--- OUTSIDE RECORDS SUMMARY | 2025-08-27 17:57 | XMS_ITS | Clinical Summary ---
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 PAD (peripheral artery disease) 11/10/2022 Seizure disorder 11/10/2022 Stroke 11/10/2022 Tobacco use 11/10/2022 Ovarian cancer 11/10/2022 Left foot infection 10/24/2022 Wound cellulitis 09/19/2022 Chronic ulcer of left leg, limited to breakdown of skin 08/16/2022 Cigarette smoker 07/04/2022 Peripheral vascular disease 07/04/2022 Ulcer of left ankle 07/04/2022 Chronic ankle pain 07/04/2022 Acute pain due to trauma 10/17/2018 Takotsubo cardiomyopathy 10/17/2018 Elevated troponin I level 10/16/2018 SAH (subarachnoid hemorrhage) 10/16/2018 Family History Medical History Relation Comments [...] money to buy more. Never true 10/25/19 Within the past 12 months, t he [...] place to sleep or slept in a retirement (including now)? No 10/25/2022 Comments No Sex [...] Colorectal Cancer Screening Colonoscopy (10 Years) 1953 Hepatitis C 1971 DTaP, Tdap and Td Vaccines ( 1 - Tdap) 1972 Pneumococcal Vaccine: 50+ Ye ars (1 of 2 - PCV) 1972 Mammogram Screening 1993 Zoster Vaccines (1 of 2) 2003 Annual Medicare Wellness Visit 2018 Dexa Scan (General) 2018 COVID-19 Vaccine (1 - 2024-2 6 season) 2025 Influenza Adult (#1) 2025 RSV Immunization or 60+ Years (1 - 1-dose 75+ series) 2028 Hepatitis A Vaccines Aged Out No long er eligible based on patient's age to complete this topic Meningococcal B Vaccine Aged Out No l [...] and discharge planning Lifestyle No Payton Hunter, REHEAT FURNACE OPERATORretread operator Devices Implanted Type Area Boring Machine Operator Helper Device Identifier Shelf Expiration Date Model / Serial / Lot Patch Shyann. Vasc. Vascu-Guard 0.8cm X 8cm - [id number] Implanted:Qty: 1 on 10/27/2022 by Ulisses Stanley MD at [facility] Mesh Left: Arterial [employer] 05/31/2027 [id number] / / [id number] Additional Health Concerns Infection Onset Date Last Indicated MRSA 01/09/2023 01/09/2023 Insurance MEDICARE [employer] Advance Directives * Full Code (Latest Code Status on File) Date Activated Date Inactivated Comments 10/24/2022 11:32 PM 11/10/2022 4:30 PM * Full Code Date Activated Date Inactivated Comments 09/19/2022 2:38 AM 09/19/2022 7:30 PM Care Teams Basket Maker Relationship Specialty Start Date End Date Janny Jackson FNP [facility] [facility] [address] [place] [id number] PCP - General Nurse Practitioner Family 06/30/22
--- OUTSIDE RECORDS SUMMARY | 2025-08-27 17:57 | XMS_ITS | Encounter Summary ---
Author Organization [facility] Address [facility] [place] [address] Care Team Providers Care Underwater Roboticist Name Role Phone Janny Jackson Primary Care Provider [phone] Encounter Details Date Type Department Care Team (Late st Contact Info) Description 08/21/2022 Prep for Procedure [place] [facility] [address] [place], [place] [address] Ulisses Stanley MD Three [facility]. [facility] [address] [place] [address] Social History Tobacco Use Types [...] documented as of this encounter Care Teams Underwater Roboticist Relationship Specialty Start Date End Date Janny Jackson FNP [address] [facility] [address] [place], [place] [id number] PCP - General Nurse Practitioner Family 06/30/22 documented as of this encounter
--- OUTSIDE RECORDS SUMMARY | 2025-08-27 17:57 | XMS_ITS | Encounter Summary ---
Author Organization [facility] Address [facility] [place] [address] Care Team Providers Care Medical Auditor Name Role Phone Janny Jackson HUMANITIES COORDINATOR Primary Care Provider [phone] Encounter Details Date Type Department Care Team (Late st Contact Info) Description 10/25/2022 Prep for Procedure [place] [facility] THREE [facility], [facility] [address] [place] [id number] Ulisses Stanley MD Three [facility]. [facility] [address] [place] [address] Social History Tobacco Use Types [...] place to sleep or slept in a fdc (including now)? No 10/25/2022 Comments No Sex [...] Coronavirus/COVID-19? No / Unsure 10/24/2022 6:38 PM MOBILE PHLEBOTOMIST documented as of this encounter Functional Status * Question Answer Date of Assessment Author Status Do you have serious difficulty walking or climbing stairs? Yes 10/25/2022 1:55 PM MOBILE PHLEBOTOMIST Hazel Lugo RN Active * Question Answer [...] Assessment Author Status No 10/25/2022 1:55 PM MOBILE PHLEBOTOMIST Activ e * RETIRED Are you blind or do you have serious difficulty seeing, even when wearing glasses? Answer Date of Assessment Author Status No 10/25/2022 1:55 PM MOBILE PHLEBOTOMIST Activ e * Do you have serious [...] 1:55 PM Domitila Priest RN Active * Calculated C-SSRS Risk Score (Lifetime/Recent) Answer Date of Assessment Author Status No Risk Indicated 10/27/2022 10:42 AM Yevgeniy Chakraborty RN Active * [place] Suicide Severity Rating Scale (Screener/Recent Self-Report) Question [...] Date Author Status Yes 10/25/2022 1:55 PM MOBILE PHLEBOTOMIST Domitila Lugo, RN Active documented in this encounter Plan of Treatment Not on file documented as of this encounter Goals Goal Patient Goal Type Associated Problems Recent Progress Patient-Stated? Author Family - family caregiver with be involved in care transitions and discharge planning Lifestyle No Payton Hunter, QUALITY OFFICER documented as of this encounter Visit Diagnoses Not on filedocumented in this encounter Additional Health Concerns Infection Onset Date Last Indicated Resolved Time MRSA 01/09/2023 01/09/2023 documented as of this encounter Care Teams Medical Auditor Relationship Specialty Start Date End Date Janny Jackson FNP [facility] [address] [place] [id number] PCP - General Nurse Practitioner Family 06/30/22 documented as of this encounter
--- OUTSIDE RECORDS SUMMARY | 2025-08-27 17:57 | XMS_ITS | Encounter Summary ---
Author Organization [facility] Address [facility] [place] [address] Care Team Providers Care Wet Process Miller Head Name Role Phone Renetta Cheryl TYRE FITTER Primary Care Provider [phone] Reason for Referral * Surgical (Routine) - Closed Specialty Diagnoses / Procedures Referred By Contac t Referred To Contact Diagnoses PVD (peripheral vascular disease) Procedures Case request operating room: BYPASS GRAFT FEMORAL POPLITEAL Ulisses Stanley MD [facility]. [id number] [place] [address] Phone: tel: fax: Referral ID Status Reason Start Date Expiration Date Visits Re quested Visits Authorized [id number] Closed 09/13/2022 09/13/2023 1 1 GENCY VEHICLE DISPATCHER Encounter Details Date Type Department Care Team (Late st Contact Info) Description 09/13/2022 Prep for Procedure [place] [facility], [facility] [address] [place] [address] Ulisses Stanley MD [facility]. [facility] [address] [place] [address] Social History Tobacco Use Types [...] Coronavirus/COVID-19? No / Unsure 09/12/2022 9:52 AM EMERGENCY VEHICLE DISPATCHER documented as of this encounter Plan of [...] documented as of this encounter Care Teams Wet Process Miller Head Relationship Specialty Start Date End Date Janny Jackson FNP [address] [place] [address] [address] [place] [address] PCP - General Nurse Practitioner Family 06/30/22 documented as of this encounter
== END 2025-08-27 09:23 | disposition home or self-care (01) ==
PROVIDERS: PCP Family Medicine; Visit Provider Nurse Practitioner Family
DX: R74.01 Elevation of levels of liver transaminase levels (principal)
CPT/HCPCS: 36415; 80053